=== PATIENT | female | born 1960 | race Caucasian/White ===

== ENCOUNTER → 2018-02-07 | Outpatient (CLI) | payer OTHER ==
[~2018-02-07] MED LIST: ATV1 PO; FLX10 PO; HYDC25 PO; PANT40TA PO; POTA-335 PO; POTA8CAP6 PO; PRCUNK PO; SYN25 PO
[2018-02-07 14:03] LABS: BASO % 0.4 %; BASO ABS # 0.03 K/uL (0-0.2); EOS ABS # 0.34 K/uL (0-0.5); HEMATOCRIT 37.7 % (37-47); HEMOGLOBIN 12.5 g/dL (12.0-16.0); IG# 0.02 K/uL (0.00-0.02); LYMPH % 21.1 %; LYMPH ABS # 1.78 K/uL (1.2-3.4); MEAN CELL VOLUME 89.1 fL (80-100); MEAN CORPUSCULAR HEMOGLOBIN 29.6 pg (25-34); MEAN CORPUSCULAR HGB CONC 33.2 g/dl (32-36); MEAN PLATELET VOLUME 9.6 fL (7.4-10.4); MONO % 6.4 %; MONO ABS # 0.54 K/uL (0.11-0.59); NEUT % 67.9 %; NEUT ABS # 5.73 K/uL (1.4-6.5); PLATELET COUNT 339 K/uL (130-400); RED CELL DISTRIBUTION WIDTH CV 14.7 % (11.5-14.5); RED CELL DISTRIBUTION WIDTH SD 47.4 fL (36.4-46.3); WHITE BLOOD COUNT 8.44 K/uL (4.8-10.8)
[2018-02-07 15:25] LABS: BLOOD UREA NITROGEN 13 mg/dl (7-18); CALCIUM 9.3 mg/dl (8.5-10.1); CARBON DIOXIDE 29 mmol/L (21-32); CREATININE 0.84 mg/dl (0.60-1.20); GLUCOSE 91 mg/dl (70-99); POTASSIUM 3.5 mmol/L (3.5-5.1); SODIUM 138 mmol/L (136-145)
== END | disposition home or self-care (01) ==
LOC: C.LABMFLN 08:27
PROVIDERS: ATTEND Family Medicine
DX: J20.9 Acute bronchitis, unspecified (principal); J01.90 Acute sinusitis, unspecified

== ENCOUNTER → 2018-02-15 | Outpatient (CLI) | payer OTHER | END | disposition home or self-care (01) | LOC: C.LABMFLN 07:36 | PROVIDERS: ATTEND Physician Assistant | DX: R05 Cough (principal) ==

== ENCOUNTER 2020-08-20 07:28 | Inpatient (IN) ==
--- NOTE | 2020-08-01 14:06 | PAT Medication Instructions ---
Medication Instructions Date of Service August 01, 2020 Home Medications Medication Instructions Recorded cyclobenzaprine 10 mg tablet 10 mg PO TID PRN #90 tab 02/29/20 albuterol sulfate 90 mcg/actuation 2 puffs INH Q6H PRN #18 gm 04/03/20 aerosol inhaler naproxen 500 mg tablet 500 mg PO BID #60 tab 04/28/20 gabapentin 300 mg capsule 300 mg PO QID #120 cap 05/26/20 pravastatin 10 mg tablet 10 mg PO DAILY #90 tab 05/26/20 oxycodone-acetaminophen 5 mg-325 1 tab PO Q6H PRN 7 Days #28 tab 06/30/20 mg tablet duloxetine 30 mg capsule,delayed 30 mg PO BID #60 cap 07/18/20 release lorazepam 1 mg tablet 1 mg PO TID PRN #90 tab 07/30/20 cyclobenzaprine 10 mg tablet 10 mg PO TID PRN albuterol sulfate 90 mcg/actuation aerosol inhaler 2 puffs INH Q6H PRN naproxen 500 mg tablet 500 mg PO BID gabapentin 300 mg capsule 300 mg PO QID pravastatin 10 mg tablet 10 mg PO DAILY oxycodone-acetaminophen 5 mg-325 mg tablet 1 tab PO Q6H PRN duloxetine 30 mg capsule,delayed release 30 mg PO BID budesonide-formoterol [Symbicort] 2 puffs INH BID PRN cetirizine [Zyrtec] 10 mg PO QAM fluticasone propionate 2 sprays INTNAS QAM hydrochlorothiazide 25 mg PO QAM levothyroxine [Synthroid] 75 mcg PO QAM omeprazole 20 mg PO QAM ondansetron HCl [Zofran] 4 mg PO Q8H PRN potassium chloride 30 meq PO QAM topiramate [Topamax] 75 mg PO HS lorazepam 1 mg tablet 1 mg PO TID PRN ASK your surgeon for instructions naproxen 500 mg tablet 500 mg PO BID DO NOT take the morning of surgery cyclobenzaprine 10 mg tablet 10 mg PO TID PRN cetirizine [Zyrtec] 10 mg PO QAM hydrochlorothiazide 25 mg PO QAM potassium chloride 30 meq PO QAM Take morning of surgery With a small sip of water, OTHERWISE NOTHING TO EAT OR DRINK AFTER MIDNIGHT: albuterol sulfate 90 mcg/actuation aerosol inhaler 2 puffs INH Q6H PRN (use if needed; please bring with you to hospital day of surgery if possible) gabapentin 300 mg capsule 300 mg PO QID pravastatin 10 mg tablet 10 mg PO DAILY oxycodone-acetaminophen 5 mg-325 mg tablet 1 tab PO Q6H PRN (okay to take up to 4 hours prior to surgery if needed) duloxetine 30 mg capsule,delayed release 30 mg PO BID budesonide-formoterol [Symbicort] 2 puffs INH BID PRN(if needed) fluticasone propionate 2 sprays INTNAS QAM levothyroxine [Synthroid] 75 mcg PO QAM omeprazole 20 mg PO QAM ondansetron HCl [Zofran] 4 mg PO Q8H PRN (if needed) lorazepam 1 mg tablet 1 mg PO TID PRN (if needed) Take evening before surgery cyclobenzaprine 10 mg tablet 10 mg PO TID PRN (if needed) albuterol sulfate 90 mcg/actuation aerosol inhaler 2 puffs INH Q6H PRN (if needed) gabapentin 300 mg capsule 300 mg PO QID oxycodone-acetaminophen 5 mg-325 mg tablet 1 tab PO Q6H PRN (if needed) duloxetine 30 mg capsule,delayed release 30 mg PO BID budesonide-formoterol [Symbicort] 2 puffs INH BID PRN (if needed) ondansetron HCl [Zofran] 4 mg PO Q8H PRN (if needed) topiramate [Topamax] 75 mg PO HS lorazepam 1 mg tablet 1 mg PO TID PRN (if needed) Other Notes If you have any questions please call us at [phone] or [phone] or [phone] or [phone]
--- NOTE | 2020-08-05 10:54 | Anesthesiology Consultation ---
Date of Service August 05, 2020 Assessment & Plan (1) Encounter for pre-operative examination: Per assessment on 08/05: Travel screen negative. No known COVID-19 positive cont acts or current COVID-19 related symptoms. Surgeon arranging preop COVID testing. Awaiting results. Chart Review Chart Review: Acceptable Risk for Surgery (pending surgeon-ordered PCP clearance) and Patient seen in Pre Admission Testing Teaching & Discussion Pre-Anesthesia Teaching/Discussion Notes: Instructed NPO after midnight before surgery,except medications with 15 cc of water. Medication instructions provided according to the PAT guidelines. History Surgery Operation Date: 08/20/20 07:45 Proposed Procedures p C6-C7 Anterior Cervical Discectomy and Fusion, Possible C5-C6 Plate Removal - Hermilo Magallanes DO Height/Weight Height: 5 ft 6 in Weight: 86.2 kg Allergies Allergy/AdvReac Type Severity Reaction Status Date / Time Sulfa (Sulfonamide Allergy Intermediate hives Verified 08/05/20 10:52 Antibiotics) tramadol Allergy Intermediate hives Verified 08/05/20 10:52 Medications Home Medications Medication Instructions Recorded Confirmed Last Taken cyclobenzaprine 10 mg tablet 10 mg PO TID PRN #90 tab 02/29/20 07/25/20 Unknown albuterol sulfate 90 mcg/actuation 2 puffs INH Q6H PRN #18 gm 04/03/20 07/25/20 Unknown aerosol inhaler naproxen 500 mg tablet 500 mg PO BID #60 tab 04/28/20 07/25/20 Unknown gabapentin 300 mg capsule 300 mg PO QID #120 cap 05/26/20 07/25/20 Unknown duloxetine 30 mg capsule,delayed 30 mg PO BID #60 cap 07/18/20 07/25/20 Unknown release budesonide-formoterol [Symbicort] 2 puffs INH BID PRN 07/25/20 07/25/20 Unknown cetirizine [Zyrtec] 10 mg PO QAM 07/25/20 07/25/20 Unknown fluticasone propionate 2 sprays INTNAS QAM 07/25/20 07/25/20 Unknown hydrochlorothiazide 25 mg PO QAM 07/25/20 07/25/20 Unknown levothyroxine [Synthroid] 75 mcg PO QAM 07/25/20 07/25/20 Unknown omeprazole 20 mg PO QAM 07/25/20 07/25/20 Unknown ondansetron HCl [Zofran] 4 mg PO Q8H PRN 07/25/20 07/25/20 Unknown potassium chloride 30 meq PO QAM 07/25/20 07/25/20 Unknown topiramate [Topamax] 75 mg PO HS 07/25/20 07/25/20 Unknown lorazepam 1 mg tablet 1 mg PO TID PRN #90 tab 07/30/20 Unknown Past Medical History Medical History (Updated 08/05/20 @ 12:58 by Keira Escalona) Acid reflux controlled Anemia no known hx of blood transfusions Anxiety Arthritis Asthma stable Chronic lumbar pain Depression Eustachian tube dysfunction Headache HTN (hypertension) per patient, baseline BP currently low-normal range Hyperlipidemia Hypothyroidism Myalgia Radius fracture left distal radius fracture (06/21/20), conservative management with Exos sp lint after mechanical fall- following with Dr. Eng ([facility])/surgeon's office made aware Stomach ulcer hx (years ago) Exercise / Class Metabolic Activity II 4-5 Yardwork/Stairs/Walk up hill Past Family History Family History Mother Heart disease Depression Lung disease Sister Depression Aunt Breast cancer Denies family history of Ovarian cancer Prostate cancer Colorectal cancer Past Surgical History Surgical History History of back surgery lumbar fusion History of colonoscopy History of neck surgery fusion Past Anesthesia History No Hx of Anesthesia Complications and No Family Hx of Anesthesia Complications History of PONV No Hx of PONV and No Hx of Motion Sickness STOP BANG Total 2 Social History Smoking Status: Current every day smoker tobacco type: cigarettes Smoking cigarettes per day: 10 cigs/day x 30+ years Do You Dip or Chew Tobacco: No Hx Alcohol Use: Yes Alcohol type: hard liquor alcohol intake frequency: a few times a month Hx Substance Use: No Review of Systems Patient denies chest pain, shortness of breath, dyspnea on exertion, fever, chills, cough, wheezing, palpitations. Physical Exam Vital Signs VITALS BP 119/79 P 93 TEMP 98.8 SP02 99%RA RESP 18 PHYSICAL Mildly decreased cervical extension 2/2 cervicalgia (also s/p cervical fusion) Full TMJ range of motion. TMD 3.5 finger breaths Mallampati Score 2 Dentition: intact, upper front cap Lungs: clear throughout to auscultation Cardiac: regular rate and rhythm, no murmurs noted Spine: normal Carotid arteries: negative bruit Extremities: no edema Testing Laboratory Results 08/05/20 11:54 PT 10.2 Seconds (9.0-12.0) 08/05/20 11:54 INR 1.0 (0.9-1.1) 08/05/20 11:54 APTT 28.0 Seconds (21.0-31.0) 08/05/20 11:54 Urine Color Yellow 08/05/20 11:54 Urine Appearance Clear (Clear) 08/05/20 11:54 Urine pH 6.5 (4.5-7.5) 08/05/20 11:54 Ur Specific [place] 1.013 (1.000-1.030) 08/05/20 11:54 Urine Protein Negative (Negative) 08/05/20 11:54 Urine Glucose (UA) Negative (Negative) 08/05/20 11:54 Urine Ketones Negative (Negative) 08/05/20 11:54 Urine Nitrite Negative (Negative) 08/05/20 11:54 Ur Leukocyte Esterase Negative (Negative) 08/05/20 11:54 Blood Type O Positive 08/05/20 11:54 Antibody Screen NEGATIVE 08/05/20 11:54 07/18/20 SODIUM 139 POTASSIUM 3.7 CHLORIDE 110 CO2 26 BUN 19 CREATININE 0.91 GLUCOSE 84 Electrocardiogram Date: 08/05/20 Findings: + NSR @ (85) Chest X-Ray Date: 08/05/20 FINDINGS: PA and lateral chest radiographs are compared to study dated 09/03/2008. The cardiomediastinal silhouette is unremarkable. The lungs and pleural spaces are clear. There is no pneumothorax. The bony thorax appears intact. Fusion hardware is seen in the lower cervical spine and the lumbar spine. IMPRESSION: No active disease in the chest.
--- NOTE | 2020-08-05 12:01 | Electrocardiogram Report ---
Test Reason : Blood Pressure : / mmHG Vent. Rate : 085 BPM Atrial Rate : 085 BPM P-R Int : 140 ms QRS Dur : 086 ms QT Int : 366 ms P-R-T Axes : 070 057 053 degrees QTc Int : 435 ms Normal sinus rhythm Normal ECG When compared with ECG of 03-SEP-2008 10:23, No significant change was found Confirmed by Irving Marx ([id number]) on 08/05/2020 12:01:20 PM Referred By: Hermilo Magallanes Confirmed By:Irving Marx
--- NOTE | 2020-08-05 12:37 | XRay Report ---
TWO VIEW CHEST CLINICAL HISTORY: Preoperative examination. FINDINGS: PA and lateral chest radiographs are compared to study dated 09/03/2008. The cardiomediastin al silhouette is unremarkable. The lungs and pleural spaces are clear. There is no pneumothorax. The bony thorax appears intact. Fusion hardware is seen in the lower cervical spine and the lumbar spine . IMPRESSION: No active disease in the chest. ACT 112: Negative or not required by law. Electronically signed by: Rito Plaza M.D. 08/05/2020 12:36 PM
[2020-08-05 13:14] LABS: Basophils # (auto) 0.02 K/uL (0-0.2); Basophils % (auto) 0.2 %; Eosinophils # (auto) 0.15 K/uL (0-0.5); Eosinophils % (auto) 1.7 %; Hematocrit (blood only) 38.5 % (37-47); Hemoglobin 12.4 g/dL (12.0-16.0); Immature Granulocytes # (auto) 0.01 K/uL (0.00-0.02); Immature Granulocytes % (auto) 0.1 %; Lymphocytes # (auto) 1.98 K/uL (1.2-3.4); Lymphocytes % (auto) 22.7 %; Mean Corpuscular Hemoglobin 29.7 pg (25-34); Mean Corpuscular Hgb Conc 32.2 g/dL (32-36); Mean Corpuscular Volume 92.3 fL (80-100); Mean Platelet Volume 9.9 fL (7.4-10.4); Monocytes # (auto) 0.41 K/uL (0.11-0.59); Monocytes % (auto) 4.7 %; Neutrophils # (auto) 6.17 K/uL (1.4-6.5); Neutrophils % (auto) 70.6 %; Platelet Count 343 K/uL (130-400); RDW Coefficient of Variation 15.2 % (11.5-14.5); RDW Standard Deviation 51.6 fL (36.4-46.3); Red Blood Count 4.17 M/uL (4.2-5.4); White Blood Count 8.74 K/uL (4.8-10.8)
[2020-08-05 13:31] LABS: Appearance Urine Clear (Clear); Bilirubin Urine Negative (Negative); Blood Urine Negative (Negative); Color Urine Yellow; Glucose Urine UA Negative (Negative); Ketones Urine Negative (Negative); Leukocyte Esterase Urine Negative (Negative); Nitrite Urine Negative (Negative); Protein Urine Negative (Negative); Specific Gravity Urine 1.013 (1.000-1.030); Urobilinogen Urine Negative (Negative); pH Urine 6.5 (4.5-7.5)
[2020-08-05 13:32] LABS: Prothrombin Time 10.2 Seconds (9.0-12.0)
[~2020-08-20 07:28] MED LIST changes: +ACETAMINOPHEN 500 MG TAB PO SCH; -ATV1 PO; +CeleBREX 200 MG CAP PO SCH; -FLX10 PO; +GABAPENTIN 600 MG DOSE PO SCH; -HYDC25 PO; +LR 15ML/HR IV SCH; -PANT40TA PO; -POTA-335 PO; -POTA8CAP6 PO; -PRCUNK PO; -SYN25 PO; +ceFAZolin 2000MG 2,000 MG/15 ML SYR IV SCH
--- NOTE | 2020-08-20 08:51 | History & Physical Bridge Note ---
Date of Service August 20, 2020 History & Physical Bridge Note I have examined the patient, reviewed the History & Physical and in the interval since the performance of the History & Physical I have noted the following changes of clinical significance: no changes noted
--- NOTE | 2020-08-20 08:53 | History & Physical Report ---
Date of Service August 20, 2020 Assessment & Plan (1) Herniation of cervical intervertebral disc with radiculopathy: Admission and Anticipated Discharge Date Admission Date: C6-C7 anterior cervical discectomy and fusion, possible C5-C6 plate removal History of Present Illness Chief Complaint: Neck and arm pain Primary Care Provider: Prince Campoverde DO This is a 60-year-old female known to us that presents with worsening neck and arm symptoms. After failing course of nonoperative care she is here for surgical intervention. Allergies Allergy/AdvReac Type Severity Reaction Status Date / Time Sulfa (Sulfonamide Allergy Intermediate hives Verified 08/20/20 07:59 Antibiotics) tramadol Allergy Intermediate hives Verified 08/20/20 07:59 Home Medications Medication Instructions Recorded Confirmed Type cyclobenzaprine 10 mg tablet 10 mg PO TID PRN #90 tab 02/29/20 08/20/20 Rx albuterol sulfate 90 mcg/actuation 2 puffs INH Q6H PRN #18 gm 04/03/20 08/08/20 Rx aerosol inhaler naproxen 500 mg tablet 500 mg PO BID #60 tab 04/28/20 08/20/20 Rx duloxetine 30 mg capsule,delayed 30 mg PO BID #60 cap 07/18/20 08/20/20 Rx release budesonide-formoterol [Symbicort] 2 puffs INH BID PRN 07/25/20 08/20/20 History cetirizine [Zyrtec] 10 mg PO QAM 07/25/20 08/20/20 History fluticasone propionate 2 sprays INTNAS QAM 07/25/20 08/20/20 History hydrochlorothiazide 25 mg PO QAM 07/25/20 08/20/20 History levothyroxine [Synthroid] 75 mcg PO QAM 07/25/20 08/20/20 History omeprazole 20 mg PO QAM 07/25/20 08/20/20 History ondansetron HCl [Zofran] 4 mg PO Q8H PRN 07/25/20 08/20/20 History potassium chloride 30 meq PO QAM 07/25/20 08/20/20 History topiramate [Topamax] 100 mg PO HS 07/25/20 08/20/20 History lorazepam 1 mg tablet 1 mg PO TID PRN #90 tab 07/30/20 08/20/20 Rx acetaminophen 300 mg-codeine 30 mg 1 tab PO TID PRN #30 tab 08/08/20 08/20/20 Rx tablet gabapentin 300 mg capsule 300 mg PO QID #120 cap 08/18/20 08/20/20 Rx topiramate 50 mg PO QAM 08/20/20 08/20/20 History Past Med/Surg History Medical History (Updated 08/20/20 @ 08:52 by Hermilo Magallanes DO) Acid reflux controlled Anemia no known hx of blood transfusions Anxiety Arthritis Asthma stable Chronic lumbar pain Depression Eustachian tube dysfunction Headache HTN (hypertension) per patient, baseline BP currently low-normal range Hyperlipidemia Hypothyroidism Myalgia Radius fracture left distal radius fracture (06/21/20), conservative management with Exos splint after mechanical fall- following with Dr. Eng ([facility])/surgeon's office made aware Stomach ulcer hx (years ago) Surgical History History of back surgery lumbar fusion History of colonoscopy History of neck surgery fusion Family History Mother Heart disease Depression Lung disease Sister Depression Aunt Breast cancer Denies family history of Ovarian cancer Prostate cancer Colorectal cancer Social History (Updated 07/03/19 @ 14:54 by Sujey Lamas MA) Smoking Status: Current every day smoker Age Started Using Tobacco: 17; packs per day: 0.5; Cigarettes Per Day: 10 cigs/day x 30+ years; Second Hand Exposure: Yes; Do You Dip or Chew Tobacco: No; Hx Alcohol Use: Yes Alcohol type: hard liquor Alcohol Intake Frequency Comment: occassionally Hx Substance Use: No Preferred Language: Somali Communication Ability: Effective Rheostat Assembler Required: No Beliefs That Will Affect Care: None marital status: Single Current Living Situation: Other Current Living Situation Comment: grand-daughter current occupational status: employed current occupation: [employer] Other Information That Helps Us Care for You: No Feels Safe at Home: Yes Safety Concerns: Feels Safe At This Time Childhood Exposure to Second-Hand Smoke: Yes caffeine: Yes (coffee, ice tea ) Dental Care, Regularly: Yes Physical Activity Frequency: Other Physical Activity Frequency Comment: walking Seatbelt Use: always Assistive Devices: Glasses Assistive Devices Comment: CAP UPPER FRONT Physical Exam Physical Exam: Patient is alert and oriented Heart regular in rhythm Lungs clear to auscultation
[2020-08-20] MEDS ORDERED: PROPOFOL IV EMULSION 10 MG/ML 20 ML VIAL IV ONE (09:18)
[2020-08-20] MEDS ORDERED: DEXAMETHASONE SOD INJ 4 MG/ML VIAL ONE (09:18)
[2020-08-20] MEDS ORDERED: LARYING-O-JET KIT (LTA) ONE (09:18)
[2020-08-20] MEDS ORDERED: ROCURONIUM BROMIDE 10 MG/ML 5 ML VIAL IV ONE (09:18)
[2020-08-20] MEDS ORDERED: fentaNYL citrate 100 MCG/2 ML VIAL ONE (09:18)
[2020-08-20] MEDS ORDERED: LIDOCAINE HCL 2% 2 ML VIAL/AMP(20MG/ML) INFIL ONE (09:18)
[2020-08-20] MEDS ORDERED: MIDAZOLAM HCL 1 MG/ML 2ML VIAL ONE (09:18)
[2020-08-20] MEDS ORDERED: SUCCINYLCHOLINE CHLORIDE 20 MG/ML 10 ML VIAL IV ONE (09:18)
[2020-08-20] MEDS ORDERED: ONDANSETRON INJ 2 MG/ML 2 ML VIAL ONE (09:18)
[2020-08-20] MEDS ORDERED: BACITRACIN INJ 50,000 UNIT VIAL ONE (09:19)
[2020-08-20] MEDS ORDERED: ACETAMINOPHEN 1000 MG/100 ML IV IV ONE (09:22)
[2020-08-20] MEDS ORDERED: ATROPINE SULFATE 0.1 MG/ML 10ML SYR IV PRN (10:26)
[2020-08-20] MEDS ORDERED: ePHEDrine sulfate 50 MG/ML AMP IV PRN (10:26)
[2020-08-20] MEDS ORDERED: fentaNYL citrate 100 MCG/2 ML VIAL IV PRN (10:26)
[2020-08-20] MEDS ORDERED: HYDROmorphone INJ 1 MG/ML SYRINGE IV PRN ×2 (10:26→12:59)
[2020-08-20] MEDS ORDERED: FLOSEAL HEMOSTATIC MATRIX 10ML TOP ONE (10:45)
--- NOTE | 2020-08-20 11:20 | Operative Report ---
Post Operative Report Pre & Post Diagnosis Operation Date: 08/20/20 09:05 Pre-Op Diagnosis: Spinal Stenosis, Cervical Region Cervical disc condition with radiculopathy Post-Op Diagnosis: Same I identified the patient and participated in the time-out.: Yes Procedure Operation Date: 08/20/20 09:05 Actual Procedures #1 removal of anterior cervical instrumentation C5-C6. #2 exploration of fusion C5-C6. #3 intracervical discectomy with bilateral foraminotomies C6-C7. #4 anterior cervical arthrodesis C6-C7. #5 placement of 8 mm spiral cage filled w ith DBM and c 6 C7. #6 application of 5 complete screws across C6-C7. Surgeon Hermilo Magallanes, DO Director Of Distribution Tommy Hilton Estimated Blood Loss 10 Findings Consistent with Post-Op Diagnosis Specimens None Indications This is a 52-year-old female known to me the presents with bulge diagnosis after failing course of nonoperative care she is [facility] Description of Procedure Patient was met with identified informed consent obtained. 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 All bony prominences well-padded eyes inspected to ensure no external pressure placed upon up at this point the anterior cervical spine was prepped and draped no sterile fashion. The assistance of fluoroscopy identified the see 6 vertebral body and a transverse incision was placed on the right anterior aspect of the cervical spinal lines region. Sharp dissection with assistance of bipolar electrocautery performed down to and exposing the anterior cervical spine from C5-C7. I then removed the previous anterior cervical plate at C5 and C6. Explored the fusion mass noted to be mature and intact. Then performed a complete discectomy of C6-C7 out to the uncovertebral's bilaterally. [place] distracting pins were utilized to assist in visualization. Removed all posterior annular fibers longitudinal ligament bilateral foraminotomies performed. Endplates were then burred to subcortical bleeding bone and an 8 mm spiral cage filled with DBM tapped in position. Distracting apparatus was removed and a 5 complete screws applied with the assistance of fluoroscopy. The incision was then copiously irrigated explored to ensure no damage to surrounding structures remaining bleeding. 10 round CLARENCE drain inserted. Incision was then closed with 2 Vicryl in a fashion of 4 Monocryl for final skin closure. Steri-Strip sterile dressings placed. Patient will continue PACU stable condition. Please note spinal cord monitoring utilized at the procedure. No changes noted. Tommy juares was present at the entire surgery involved in patient positioning complex portions of the surgery and final skin closure. I attest to the content of the Intraoperative Record and any orders documented therein. Any exceptions are noted below.
--- NOTE | 2020-08-20 12:12 | Anesthesiology Progress Note ---
Date of Service August 20, 2020 Anesthesia Post Procedure Vital Signs Vital Signs: Temp Pulse Pulse Resp BP Pulse Ox 08/20/20 12:05 87 15 141/80 H 98 08/20/20 11:55 84 17 132/90 100 08/20/20 11:45 83 16 130/84 100 08/20/20 11:35 36.6 C 81 23 107/77 100 08/20/20 08:32 36.9 C 83 18 121/71 95 Pain Intensity Left Arm: Pain Intensity: 8 Neck: Pain Intensity: 5 Transfer of Care Handoff Completed per policy Notes Mental Status: alert / awake / arousable and participated in evaluation Patient Amnestic to Procedure: Yes Nausea / Vomiting: adequately controlled Pain: adequately controlled Airway Patency, RR, SpO2: stable & adequate BP & HR: stable & adequate Hydration State: stable & adequate Anesthetic Complications: no major complications apparent and Pt Satisfied with anesthetic care
--- NOTE | 2020-08-20 12:12 | Fluoroscopy Report ---
FL cervical 2-3V CLINICAL HISTORY: ACDF C6-7/C5-6 REMOVE PLATE COMPARISON STUDY: None. FLUOROSCOPY TIME: 15 second. FINDINGS: 3 fluoroscopic spot images of the cervical spine demonstrate anterior cervical discectomy a nd fusion at C6-C7. The hardware appears intact. IMPRESSION: Fluoroscopy provided for C6-C7 ACDF. ACT 112: Negative or not required by law. Electronically signed by: Kannan Willard M.D. 08/20/2020 12:11 PM
--- NOTE | 2020-08-20 12:15 | Anesthesiology Progress Note ---
Date of Service August 20, 2020 Anesthesia Post Procedure Vital Signs Vital Signs: Temp Pulse Pulse Resp BP Pulse Ox 08/20/20 12:05 87 15 141/80 H 98 08/20/20 11:55 84 17 132/90 100 08/20/20 11:45 83 16 130/84 100 08/20/20 11:35 36.6 C 81 23 107/77 100 08/20/20 08:32 36.9 C 83 18 121/71 95 Pain Intensity Left Arm: Pain Intensity: 8 Neck: Pain Intensity: 5 Transfer of Care Handoff Completed per policy Notes Mental Status: alert / awake / arousable and participated in evaluation Nausea / Vomiting: adequately controlled Pain: adequately controlled Airway Patency, RR, SpO2: stable & adequate BP & HR: stable & adequate Hydration State: stable & adequate Neuraxial Anesthesia: was administered and sensory block is resolving Anesthetic Complications: no major complications apparent and Pt Satisfied with anesthetic care
[2020-08-20] MEDS ORDERED: ONDANSETRON INJ 2 MG/ML 2 ML VIAL IV PRN (12:59)
[2020-08-20] MEDS ORDERED: LORazepam 0.5 MG TAB PO PRN (12:59)
[2020-08-20] MEDS ORDERED: ALUMINUM/MAGNESIUM SUSP 30 ML UDC PO PRN (12:59)
[2020-08-20] MEDS ORDERED: FAMOTIDINE 20 MG TAB PO PRN (12:59)
[2020-08-20] MEDS ORDERED: ACETAMINOPHEN 500 MG TAB PO PRN (12:59)
[2020-08-20] MEDS ORDERED: HYDROmorphone INJ 0.5 MG/0.5 ML SYR IV PRN (12:59)
[2020-08-20] MEDS ORDERED: RACEPINEPHRINE 2.25% NEBU SOLN 0.5 ML VIAL INH PRN (12:59)
[2020-08-20] MEDS ORDERED: DEXAMETHASONE SOD PHOSPHATE 8 MG in SYRINGE 0 ML IV PRN (12:59)
[2020-08-20] MEDS ORDERED: diphenhydrAMINE Capsule 25 MG CAP PO PRN (12:59)
[2020-08-20] MEDS ORDERED: ACETAMINOPHEN 1,000 MG/100 ML VIAL IV PRN (12:59)
[2020-08-20] MEDS ORDERED: MAGNESIUM HYDROXIDE SUSP 30 ML UDC PO PRN (12:59)
[2020-08-20] MEDS ORDERED: ONDANSETRON 4 MG OD TAB PO PRN (12:59)
[2020-08-20] MEDS ORDERED: PROMETHAZINE HCL 12.5 MG in SODIUM CHLORIDE 0.9% 50 ML IV PRN (12:59)
[2020-08-20] MEDS ORDERED: hydrOXYzine HCl 25 MG TAB PO PRN (12:59)
[2020-08-20] MEDS ORDERED: NALOXONE HCL 0.4 MG/1 ML VIAL/CARP IV PRN (12:59)
[2020-08-20] MEDS ORDERED: LORazepam 0.5 MG/1 ML VIAL IV PRN (12:59)
[2020-08-20] MEDS ORDERED: DO NOT ADMINISTER PNEUMOCOCCAL VACCINE PRN (12:59)
[2020-08-20] MEDS ORDERED: ATIVAN 1MG HOMEPACK PO PRN (12:59)
[2020-08-20] MEDS ORDERED: SOD PHOSPHATE/SOD BIPHOSPHATE ENEMA 132 ML BTL PR PRN (12:59)
[2020-08-20] MEDS ORDERED: METOCLOPRAMIDE HCL INJ 5 MG/ML 2 ML VIAL IV PRN (12:59)
[2020-08-20] MEDS ORDERED: DO NOT ADMINISTER FLU VACCINE PRN (12:59)
[2020-08-20] MEDS ORDERED: FLUTICASONE/VILANTEROL 100/25MCG 14 PUFFS/INHALER INH PRN (13:15)
[2020-08-20] MEDS ORDERED: ALBUTEROL HFA INHALER 8.5 GM INH PRN (13:23)
[2020-08-20] MEDS: LACTATED RINGER'S 1,000 ML IV SCH ×2 (13:30→23:25)
[2020-08-20] MEDS: oxyCODONE HCL IR 5 MG TAB (IMMEDIATE RELEASE) PO PRN ×2 (13:38→19:43)
[2020-08-20] MEDS: GABAPENTIN 300 MG CAP PO SCH ×3 (14:06→21:02)
[2020-08-20] MEDS: ceFAZolin 2000MG 2,000 MG/15 ML SYR IV SCH (17:50)
[2020-08-20] MEDS ORDERED: DOCUSATE SODIUM/SENNA 50/8.6MG TAB PO SCH (21:00)
[2020-08-20] MEDS ORDERED: TOPIRAMATE 100 MG TAB PO SCH (21:00)
[2020-08-20] MEDS: DULoxetine HCL 30 MG CAP PO SCH (21:01)
[2020-08-20] MEDS: DEXAMETHASONE SOD PHOSPHATE 8 MG in SYRINGE 0 ML IV SCH (21:01)
[2020-08-21] MEDS: ceFAZolin 2000MG 2,000 MG/15 ML SYR IV SCH (00:45)
[2020-08-21] MEDS: oxyCODONE HCL IR 5 MG TAB (IMMEDIATE RELEASE) PO PRN ×2 (02:19→07:18)
[2020-08-21] MEDS: DEXAMETHASONE SOD PHOSPHATE 8 MG in SYRINGE 0 ML IV SCH (08:18)
[2020-08-21] MEDS: DULoxetine HCL 30 MG CAP PO SCH (08:18)
[2020-08-21] MEDS: GABAPENTIN 300 MG CAP PO SCH (08:19)
[2020-08-21] MEDS ORDERED: PANTOprazole 40 MG TAB PO SCH (09:00)
[2020-08-21] MEDS ORDERED: FLUTICASONE PROPIONATE NA SPR 16 GM BTL SCH (09:00)
[2020-08-21] MEDS ORDERED: LEVOTHYROXINE SODIUM 75 MCG TABLET PO SCH (09:00)
[2020-08-21] MEDS ORDERED: CETIRIZINE HCL 10 MG TABLET PO SCH (09:00)
[2020-08-21] MEDS ORDERED: POTASSIUM CHLORIDE 10 MEQ TABCR PO SCH (09:00)
[2020-08-21] MEDS ORDERED: TOPIRAMATE 50 MG TAB PO SCH (09:00)
[2020-08-21] MEDS ORDERED: hydroCHLOROthiazide 25 MG TAB PO SCH (09:00)
--- NOTE | 2020-08-21 10:17 | Discharge Summary ---
Date of Service August 21, 2020 Admission HPI Per Admitting Provider This is a 60-year-old female known to us that presents with worsening neck and arm symptoms. After failing course of nonoperative care she is here for surgical intervention. Principal Diagnosis Cervical disc condition with radiculopathy Discharge Data Allergies Allergy/AdvReac Type Severity Reaction Status Date / Time Sulfa (Sulfonamide Allergy Intermediate hives Verified 08/20/20 07:59 Antibiotics) tramadol Allergy Intermediate hives Verified 08/20/20 07:59 Procedures Performed Operation Date: 08/20/20 09:05 Actual Procedures p C6-C7 Anterior Cervical Discectomy and Fusion, Spinal Cord Monitoring(Not Applicable) - Hermilo Magallanes DO s C5-C6 Plate Removal,(Not Applicable) - Hermilo Magallanes DO Ordered Studies 08/20/20 09:05 FL cervical 2-3V Routine FL fluoroscopy <1hr Routine Hospital Course (1) Herniation of cervical intervertebral disc with radiculopathy: Patient underwent anterior cervical discectomy and fusion tolerated well second orthopedic for postop labor postop day 1 neck pain was controlled arm symptoms markedly improved. Swallowing well. CLARENCE drain decreasing appropriately. Subsequent discharge home. Discharge orders instructions found the chart for further review. Total Time Total Time Spent Total Time Spent (In Minutes): 20 minutes Discharge Plan Discharge Items Patient Disposition: Home - Self-Care Reason For Visit: Spin Stenosis, Cervical Region Discharge Diagnosis: Cervical spinal stenosis with radiculopathy Activity: As commented below Non-emergency contact: Primary Care Provider Call non-emergency contact if: you have any medication questions Follow-up/Referrals: Prince Campoverde DO [Primary Care Provider] - Diet: Regular Addtl Attending Provider Instructions: ACTIVITY RECOMMENDATIONS: SELF CARE INSTRUCTIONS AFTER CERVICAL FUSIONS 1. No smoking. Smoking drastically decreases the chance of a solid fusion. 2. No bending, lifting more than 5 pounds, or twisting (roll like a log when turning in bed). 3. You may shower 3 days after surgery. Thoroughly dry wound. Do not soak in the tub. 4. Cervical collar: Must be worn at all times including sleeping. You may remove the brace only to bath, eat and if you are sitting in a recliner. 5. Please walk as much as you can for exercise. Gradually increase the distance that you walk as your endurance increases. SPECIAL CARE INSTRUCTIONS: VERY IMPORTANT TO READ AND REVIEW A. Do not take any anti-inflammatory medications (i.e. Indocin, Advil, Aspirin, Naprosyn, Aleve, Motrin, etc.) as these may inhibit the chance of a solid fusion. Tylenol is okay to take. B. Your surgical incision has been closed with a cosmetic suture under the skin that will dissolve in about 6 weeks. In 14 days, you can use a pair of clean scissors and cut the suture that is left outside of the skin at the ends of your incision. C. Complications are uncommon, but please contact us if you have any signs or symptoms of: 1. wound infection (fever higher than 102.5 degrees F, redness, separation of wound, drainage, or increasing pain from the incision) 2. blood clots in legs (pain, swelling, redness and warmth in legs) 3. urinary tract infection (fever higher than 102.5 degrees, burning upon urination or increased frequency of urination) 4. nerve problems (inability to walk on your toes or heels, numbness, loss of bowel or bladder control) 5. any other symptoms that concern you. D. Please call the office at if you have any concerns or questions about your operation or recovery. MANAGING PAIN AFTER SPINAL SURGERY 1. Narcotic medication is intended for short-term use and will be provided for surgical pain. Surgical pain usually lasts for a period of 4-6 weeks. Narcotic medication includes Percocet, Vicodin, Darvocet, Tylenol #3 or Lortab. 2. Longer-term pain is more appropriately treated with non-narcotic medication such as Tylenol ES. 3. Muscle spasm is not appropriately treated with narcotics. Muscle relaxers such as Soma, Flexeril or Skelaxin can be used along with Tylenol ES. 4. Remember that we all live with some "aches and pains". This is not unusual or uncommon after an injury or as we get older. 5. We will provide appropriate medication within the normal guidelines of their prescribed use. We will also be very cautious and aware of potential abuse and extended duration of patients' medication needs. 6. Please allow 2-3 days to process refills. Prescriptions will not be mailed but must be picked up at the office. FOLLOW UP VISIT: Keep your scheduled follow-up appointment. Any questions, please call the office at . Pending Studies at Discharge: No Stand-Alone Forms: My [facility], Smoking Cessation Medications and DC Order Prescriptions: New oxycodone 5 mg tablet 5 mg PO Q6H PRN (Reason: pain, severe) Qty: 20 RF: 0 Continued cyclobenzaprine 10 mg tablet 10 mg PO TID PRN (Reason: muscle spasm) Qty: 90 RF: 2 naproxen 500 mg tablet 500 mg PO BID Qty: 60 RF: 5 duloxetine 30 mg capsule,delayed release(DR/EC) 30 mg PO BID Qty: 60 RF: 2 lorazepam 1 mg tablet 1 mg PO TID PRN (Reason: anxiety) Qty: 90 RF: 0 gabapentin 300 mg capsule 300 mg PO QID Qty: 120 RF: 2 albuterol sulfate [ProAir HFA] 90 mcg/actuation HFA aerosol inhaler 2 puffs INH Q6H PRN (Reason: shortness of breath or wheezing) Qty: 18 RF: 3 acetaminophen-codeine 300-30 mg tablet 1 tab PO TID PRN (Reason: headache pain) Qty: 30 RF: 0 cetirizine [Zyrtec] 10 mg tablet 10 mg PO QAM RF: 0 hydrochlorothiazide 25 mg tablet 25 mg PO QAM RF: 0 fluticasone propionate 50 mcg/actuation spray,suspension 2 sprays INTNAS QAM RF: 0 budesonide-formoterol [Symbicort] 80-4.5 mcg/actuation HFA aerosol inhaler 2 puffs INH BID PRN (Reason: Wheezing) RF: 0 ondansetron HCl [Zofran] 4 mg tablet 4 mg PO Q8H PRN (Reason: Nausea) RF: 0 levothyroxine [Synthroid] 75 mcg tablet 75 mcg PO QAM RF: 0 omeprazole 20 mg capsule,delayed release(DR/EC) 20 mg PO QAM RF: 0 potassium chloride 10 mEq tablet extended release 30 meq PO QAM RF: 0 topiramate [Topamax] 50 mg tablet 100 mg PO HS RF: 0 topiramate tablet 50 mg PO QAM RF: 0 Discharge Orders: Discharge Order (Routine); Ordered 08/21/20 Ordered By: Hermilo Magallanes Admission Data Admit Date/Time: 08/20/20 11:41 Attending Provider: Hermilo Magallanes Admit Provider: Hermilo Magallanes Primary Care Provider: Prince Campoverde
[2020-08-21] MEDS ORDERED: PERCOCET 5/325MG HOMEPACK PO ONE (10:30)
[2020-08-21] MEDS ORDERED: POLYETHYLENE (MIRALAX) 17 GM PACK PO SCH (11:22)
[2020-08-22] MEDS ORDERED: bisacodyL 10 MG SUPP PR PRN (11:22)
== END 2020-08-21 12:20 | disposition home or self-care (01) | DRG 473 ==
LOC: ASU 07:28 → 3E 11:41